=== PATIENT | male | born 1975 | race Caucasian/White ===

== ENCOUNTER 2019-04-17 02:39 | Emergency (ER) | payer OTHER ==
[~2019-04-17] VITALS: Ht 177.8 cm; Wt 79.4 kg
[2019-04-17 05:47] VITALS: BP 137/81
== END 2019-04-17 05:47 | disposition home or self-care (01) ==
LOC: ER 02:39
DX: S01.21XA Laceration without foreign body of nose, initial encounter (principal); F17.210 Nicotine dependence, cigarettes, uncomplicated; I10 Essential (primary) hypertension; F41.9 Anxiety disorder, unspecified; F31.9 Bipolar disorder, unspecified; W18.39XA Other fall on same level, initial encounter; Y93.01 Activity, walking, marching and hiking; Y92.89 Other specified places as the place of occurrence of the external cause; Y99.8 Other external cause status

== ENCOUNTER 2020-06-13 02:40 | Emergency (ER) | payer OTHER ==
[~2020-06-13] VITALS: Ht 177.8 cm; Wt 80.7 kg
--- NOTE | ~2020-06-13 | EMS ---
[address] [address] EMS Patient Care Report Name: TRACEY DE OLIVEIRA Room #: REG EMELI Urena#: [id number] Admission: 06/13/20 Attend Phys: Discharge: Date of : 77 Report #: [id number] THIS REPORT FOR: //name// Report Transmitted: 06/13/2020 03:47 EMS Care Summary [place], [place]/[facility] Incident [id number] @ 06/13/2020 02:05 Incident Location [address] [place] [id number] Patient GRACE DE OLIVEIRA Male, 45 Years 1975 Patient Address Homeless Patient History Bipolar II Disorder,Depression,Anxiety,Schizoaffective Disorder, Patient Allergies No known allergies, Patient Medications None Reported, Chief Complaint Could Disposition Transported No Lights/[place] Dispatch Reason Sick Person Transported To [facility] Narrative Upon arrival PT was being assisted to ambulance via PD. PT had A CC of cold exposer. PT stated that his core temp has fallen below freezing. PT was assisted into back of ambulance for further medical evaluation and intervention. PT was then monitored for any change while en route to hospital. [facility] [address] [place] [address] EMS Patient Care Report Name: TRACEY DE OLIVEIRA Room #: REG EMELI Urena#: [id number] Admission: 06/13/20 Attend Phys: Discharge: Date of : 77 Report #: [id number] Initial Vitals @02:29P: 93,R: 18,BP: 150/98,Pain: 4/10,GCS: 15,Glucose: 72,CO: 2,SpO2: 98,Revised Trauma: 12, @02:31P: 88,R: 18,BP: 168/90,Pain: 0/10,GCS: 15,SpO2: 99,Revised Trauma: 12, Assessments @02:28MENTAL:Person Oriented,Time Oriented,Event Oriented,Place Oriented,SKIN:No Abnormalities,HEENT:Head/Face: No Abnormalities,Eyes: No Abnormalities,Neck/Airway: No Abnormalities,LUNG SOUNDS:General: No Abnormalities,Left Upper: No Abnormalities,Right Upper: No Abnormalities,Left Lower: No Abnormalities,Right Lower: No Abnormalities,ABDOMEN:General: No Abnormalities,Left Upper: No Abnormalities,Right Upper: No Abnormalities,Left Lower: No Abnormalities,Right Lower: No Abnormalities,PELVIS//GI:No Abnormalities,EXTREMITIES:PULSE:Radial: 2+ Normal,NEURO:No Abnormalities, Impression Common Cold Procedures @02:29ALS AssessmentResponse: UnchangedSucceeded Timeline 02:04,Call Received 02:04,Dispatch Notified 02:05,Dispatched 02:06,En Route 02:26,On Scene 02:27,At Patient 02:29,BP: 150/98 M,PULSE: 93,RR: 18 R,SPO2: 98 Ox,ETCO2: ,B,PAIN: 4,GCS: 15, 02:29,Depart Scene 02:29,ALS Assessment,Response: UnchangedSucceeded, 02:31,BP: 168/90 M,PULSE: 88,RR: 18 R,SPO2: 99 Ox,ETCO2: ,BG: ,PAIN: 0,GCS: 15, 02:38,At Destination 02:46,Call Closed Disclaimer [email or web address] Copyright 2020 [employer] This EMS Care Summary contains data elements from the applicable legal record (which may be displayed differently). It is designed to provide pertinent information for the following purposes: continuity of care, clinical quality, and state data reporting. The complete legal record is available to ED staff and administrators of the receiving hospital in [employer] Patient Tracker. All data is provided "as is."
[2020-06-13 07:30] VITALS: BP 124/67
== END 2020-06-13 07:58 | disposition home or self-care (01) ==
LOC: ER 02:40
DX: F19.90 Other psychoactive substance use, unspecified, uncomplicated (principal); Z91.14 Patient's other noncompliance with medication regimen; Z59.0 Homelessness; I10 Essential (primary) hypertension; F17.210 Nicotine dependence, cigarettes, uncomplicated

== ENCOUNTER 2020-09-11 03:41 | Emergency (ER) | payer OTHER ==
[~2020-09-11] VITALS: Ht 177.8 cm; Wt 81.7 kg
[2020-09-11 03:43] VITALS: BP 119/72
[2020-09-11] MEDS ORDERED: BACTRIM 400-801 EACH PO (03:59)
== END 2020-09-11 04:15 | disposition home or self-care (01) ==
LOC: ER 03:41
DX: L03.116 Cellulitis of left lower limb (principal); I10 Essential (primary) hypertension; F17.210 Nicotine dependence, cigarettes, uncomplicated